=== PATIENT | male | born 1960 | race Caucasian/White ===

== ENCOUNTER 2017-03-07 23:15 | Emergency (ER) | payer SELFPAY | END 2017-03-08 02:00 | disposition home or self-care (01) | LOC: ER 23:15 | DX: M54.16 Radiculopathy, lumbar region (principal); I10 Essential (primary) hypertension; Z88.5 Allergy status to narcotic agent; W11.XXXA Fall on and from ladder, initial encounter | CPT/HCPCS: 72100; 72220; 96372; 96374; 99284; J1040; J1885; J2405 ==